=== PATIENT | male | born 1940 | race Caucasian/White ===

== ENCOUNTER 2018-07-03 12:00 | Observation (INO) | payer OTHER ==
[2018-07-03] MEDS ORDERED: NS 1,000 ML IV ONE (12:33)
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
[2018-07-03 13:39] LABS: PLATELET COUNT 163 10^3/uL (150-400)
[2018-07-03 13:48] LABS: INR 1.04 (0.83-1.16); PROTIME(PATIENT) 13.8 SEC (12.0-15.0)
[2018-07-03] MEDS ORDERED: ONDANSETRON 4 MG/2 ML VIAL IVP PRN (13:57)
[2018-07-03] MEDS ORDERED: IOHEXOL 300 mgI/ML (OMNIPAQUE) 150 ML BTL IV ONE (13:57)
[2018-07-03] MEDS ORDERED: ACETAMINOPHEN 325 MG TAB PO PRN (13:57)
[2018-07-03] MEDS ORDERED: ONDANSETRON DISINTEGRATING 4 MG TAB PO PRN (13:57)
[2018-07-03] MEDS ORDERED: BUPIVACAINE 0.5% 30 ML SDV ONE (14:11)
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
[2018-07-03] MEDS ORDERED: LR 1,000 ML IV ONE (15:01)
--- NOTE | 2018-07-03 15:28 | CPEKG ---
Test Reason : OPEN Blood Pressure : / mmHG Vent. Rate : 063 BPM Atrial Rate : 062 BPM P-R Int : 057 ms QRS Dur : 088 ms QT Int : 443 ms P-R-T Axes : 095 057 047 degrees QTc Int : 454 ms Sinus rhythm Short WA interval Probable left atrial enlargement Confirmed by Cral Espino ([id number]) on 07/03/2018 3:27:58 PM Referred By: Dalila Levi Confirmed By:Carl Espino
--- NOTE | 2018-07-03 15:41 | PDANEPAE ---
ANE Past Medical History - Cardiovascular History Hx Arrhythmias: Yes - Pulmonary History Hx Oxygen in Use at Home: No Hx Sleep Apnea: No - Endocrine History Hx Diabetes: No ANE Review of Systems Review of Systems: ANE Patient History - Allergies Allergies/Adverse Reactions: Penicillins Allergy (Verified 07/03/18 15:23) Rash propofol Allergy (Verified 07/03/18 15:23) heart problems - NPO status NPO Since - Liquids (Date): 07/03/18 NPO Since - Liquids (Time): 10:00 NPO Since - Solids (Date): 07/03/18 NPO Since - Solids (Time): 06:00 - Smoking Hx Smoking Status: Never smoked ANE Labs/Vital Signs - Labs Result Diagrams: 07/03/18 13:15 07/03/18 13:15 - Vital Signs Blood Pressure: 145/83 Heart Rate: 60 Respiratory Rate: 18 O2 Sat (%): 95 Height: 193.04 cm Weight: 83.461 kg ANE Physical Exam - Airway Mallampati Score: Class 1 - ASA Status ASA Status: III, E ANE Anesthesia Plan Anesthesia Plan: GA w LMA
[2018-07-03] MEDS ORDERED: CEFAZOLIN 1 GM/DEXTROSE/50 ML BAG IV ONE (15:59)
[2018-07-03] MEDS ORDERED: ceFAZolin 2 GM/DEXTROSE 100 ML IV ONE (16:03)
--- NOTE | 2018-07-03 16:03 | PDHPUP ---
History & Physical Update H&P update statement: This history and physical update is based on an assessment of the patient which was completed after admission or registration (within 24 hours), but prior to the surgery/procedure. H&P update: H&P reviewed & patient examined, no change in patient's condition since H&P completed
[2018-07-03] MEDS ORDERED: fentaNYL 100 MCG/2 ML INJ ONE ×2 (16:13→18:01)
[2018-07-03] MEDS ORDERED: MIDAZOLAM 2 MG/2 ML VIAL ONE (16:13)
[2018-07-03] MEDS ORDERED: PROPOFOL 200 MG/20 ML VIAL ONE (16:14)
[2018-07-03] MEDS ORDERED: ONDANSETRON 4 MG/2 ML VIAL ONE (16:22)
[2018-07-03] MEDS ORDERED: METOCLOPRAMIDE 10 MG/2 ML VIAL ONE (16:22)
[2018-07-03] MEDS ORDERED: LR 1,000 ML IV SCH (16:30)
[2018-07-03] MEDS ORDERED: BACITRACIN 50,000 UNITS/10 ML SYR IRR ONE (16:37)
[2018-07-03] MEDS ORDERED: POLYMYXIN B SULFATE 500,000 UNIT/10 ML SYR IRR ONE (16:37)
[2018-07-03] MEDS ORDERED: LR 500 ML IV PRN (17:24)
[2018-07-03] MEDS ORDERED: NALOXONE HCL 0.4 MG/ML INJ IVP PRN (17:24)
[2018-07-03] MEDS ORDERED: TEMAZEPAM 15 MG CAP PO PRN (17:25)
--- NOTE | 2018-07-03 17:25 | POSTOPPROG ---
Post Op Note Date of Operation: 07/03/18 Surgeon: Carolyne Choi Anesthesia: LMA Pre-op Diagnosis: r hand laceration and wrist fx Procedure: I&D r hand and CRPP r wrist with fluoro Inf/Abcess present in the surg proc area at time of surgery?: Yes Depth: Superfical (Skin SQ) EBL: 50-100
--- NOTE | 2018-07-03 17:25 | POSTANESTH ---
Post Anesthetic Evaluation Cardiovascular Status: Similar to Pre-Op Cond Respiratory Status: Normal, Stable Level of Consciousness/Mental Status: Can Participate in Eval Pain Control: Adequate, Prn Tx Ordered Nausea/Vomiting Control: Adequate, Prn Tx Ordered Complications Possibly Related to Anesthesia: None Noted
[2018-07-03] MEDS: fentaNYL 100 MCG/2 ML INJ IVP PRN ×2 (18:04→18:17)
[2018-07-03] MEDS: HYDROCODONE/APAP 5/325 TAB PO PRN (18:40)
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
[2018-07-03] MEDS: NIACINAMIDE 500 MG PO SCH (20:22)
[2018-07-03] MEDS: ceFAZolin 2 GM/DEXTROSE 100 ML IV SCH (22:18)
[2018-07-04] MEDS: HYDROCODONE/APAP 5/325 TAB PO PRN ×2 (01:00→12:24)
[2018-07-04] MEDS: ceFAZolin 2 GM/DEXTROSE 100 ML IV SCH (05:55)
[2018-07-04] MEDS: LEVOTHYROXINE 88 MCG TAB PO SCH (05:55)
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
[2018-07-04] MEDS: ENOXAPARIN 40 MG/0.4 ML SYR SC SCH (10:08)
[2018-07-04] MEDS: NIACINAMIDE 500 MG PO SCH ×2 (10:11→20:06)
[2018-07-04] MEDS: LACTASE 3,000 UNIT TAB PO SCH ×2 (12:21→17:58)
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
[2018-07-05] MEDS: HYDROCODONE/APAP 5/325 TAB PO PRN ×2 (00:37→05:42)
[2018-07-05] MEDS: LEVOTHYROXINE 88 MCG TAB PO SCH (05:42)
[2018-07-05] MEDS: LACTASE 3,000 UNIT TAB PO SCH (08:29)
[2018-07-05] MEDS: ENOXAPARIN 40 MG/0.4 ML SYR SC SCH (08:32)
[2018-07-05 08:39] VITALS: BP 114/67
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
[2018-07-05] MEDS: NIACINAMIDE 500 MG PO SCH (10:17)
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
--- NOTE | 2018-07-05 11:15 | ASMTLACE ---
KULDEEP Length of stay for Answers: 1 day current admission Comorbidities - select Answers: Other Notes: hypothyroidism all that apply # of Emergency department Answers: 1-2 visits in the last 6 months Score: 3 Date Signed: 07/05/2018 11:14 AM Electronically Signed By:Debra Gaines RN
--- NOTE | 2018-07-05 11:17 | ASMTDCNOTE ---
Case Management Discharge Discharge Order Complete? Answers: Yes Patient to Obtain Answers: via Family Medications Transportation Arranged Answers: Family/Friends Faxed Final Orders Answers: Yes Family Notified Answers: Yes Discharge Comments Notes: Patient discharged. [facility] notified as they are preferred provider for [place]. Final orders via allscripts. Date Signed: 07/05/2018 11:17 AM Electronically Signed By:Debra Gaines RN
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
== END 2018-07-05 11:59 | disposition home health service (06) ==
LOC: EDUNIT# → F3N 18:26
PROVIDERS: ADMIT Surgery; ATTEND Surgery
DX: S22.22XA Fracture of body of sternum, initial encounter for closed fracture (principal); S52.571A Other intraarticular fracture of lower end of right radius, initial encounter for closed fracture; S52.611A Displaced fracture of right ulna styloid process, initial encounter for closed fracture; S61.411A Laceration without foreign body of right hand, initial encounter; V43.52XA Car driver injured in collision with other type car in traffic accident, initial encounter; Y92.414 Local residential or business street as the place of occurrence of the external cause; Y93.9 Activity, unspecified; M25.512 Pain in left shoulder; E03.9 Hypothyroidism, unspecified
CPT/HCPCS: 25606; 71046; 71260; 73030; 73110; 73130; 92507; 92523; 93005; 96361; 96365; 96375; 97161; 97165; 97535; 99291; G0378; 82435-PO; 82565-PO; 82947-PO; 84132-PO; 84295-PO; 84520-PO; 85014-ER; C1713; J0690; J1650; J2250; J2270; J2405; J2704; J2765; J3010; Q9967